=== PATIENT | male | born 1995 | race African-American/Black ===

== ENCOUNTER 2019-06-30 10:49 | Emergency (ER) | payer BC ==
[~2019-06-30] VITALS: Ht 193 cm; Wt 90.7 kg
[2019-06-30] MEDS ORDERED: TRUVADA 200 MG1 EAC1 ORAL (10:58)
[2019-06-30 11:04] VITALS: BP 129/73
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
--- NOTE | 2019-06-30 12:12 | Diagnostic Imaging Report ---
Indication: Headache Technique: Contiguous 5 mm thick transaxial imaging of the head obtained in a Siemens Sensation [address] scanner. Soft tissue and bone windows generated. Automatic Exposure Control was utilized. Total Dose length Product (DLP): 1888.[address] Dose Index Volume (CTDIvol): 75.3 mGy Comparison: none Findings: The size and configuration of the cortical sulci, basal cisterns, and ventricles are within normal limits for age. There is no mass effect, midline shift, or edema identified. There is no evidence of acute hemorrhage or abnormal intra-axial or extra-axial fluid collections. The bones and soft tissues are unremarkable. Impression: No mass effect, edema or acute bleed. The CT scanner at [facility] is accredited by the [employer] and the scans are performed using dose optimization techniques as appropriate to a performed exam including Automatic Exposure control.
[2019-06-30] MEDS ORDERED: IBUPROFEN600 MG ORAL (12:22)
[2019-06-30] MEDS ORDERED: ROBAXIN-750750 MG PO (12:22)
[2019-06-30 12:36] VITALS: BP 113/65
--- NOTE | 2019-06-30 12:36 | NUR ---
ER DISCHARGE NOTE: Patient is cleared to be discharged per ERMD, pt is aox4, on room air, with stable vital signs. pt was given dc and prescription instructions, pt was able to verbalize understanding, pt id band removed without complications. pt is able to ambulate with steady gait. pt took all belongings.
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
== END 2019-06-30 12:36 | disposition home or self-care (01) ==
LOC: EMR 11:15
DX: S09.90XA Unspecified injury of head, initial encounter (principal); Z91.013 Allergy to seafood; V43.62XA Car passenger injured in collision with other type car in traffic accident, initial encounter; Y92.410 Unspecified street and highway as the place of occurrence of the external cause
CPT/HCPCS: 70450; 99284